=== PATIENT | female | born 1955 | race Caucasian/White ===

== ENCOUNTER → 2018-03-15 | Outpatient (CLI) | payer OTHER ==
--- NOTE | 2018-03-15 09:51 | PCVCIMAG ---
EXAM: BILATERAL RENAL ULTRASOUND AND BILATERAL RENAL DUPLEX INDICATION: Hypertension FINDINGS: Right kidney: Length measures 9.0 cm. No hydronephrosis or extensive renal scarring. Right renal duplex: Adequate technical quality. 50-60% proximal renal artery stenosis. The aortic to renal artery ratio is 3.5. The renal vein is patent. Left kidney: Length measures 10.3 cm. No hydronephrosis or extensive renal scarring. Left renal duplex: Adequate technical quality. No sonographic evidence of renal artery stenosis. The aortic to renal artery ratio is 2.5. The renal vein is patent. Bladder: No obvious abnormalities. IMPRESSION: 50-60% proximal right renal artery stenosis. No left renal artery stenosis. LOC:[id number]
== END | disposition home or self-care (01) ==
LOC: PCVCIMAG 08:12
PROVIDERS: ATTEND Internal Medicine Cardiovascular Disease
DX: I70.1 Atherosclerosis of renal artery (principal); I10 Essential (primary) hypertension
CPT/HCPCS: 76770; 93975

== ENCOUNTER → 2018-03-19 | Outpatient (CLI) | payer OTHER ==
[~2018-03-19] MED LIST: DIAZEPAM 10 MG TABLET. ONE; HEPARIN for ARTERIAL LINE 1,500 ML ONE; HEPARIN for SUB-Q USE 5,000 UNIT/ML VIAL. ONE; IOHEXOL 300 MG/ML 100ML VIAL. ONE; IOHEXOL 350 MG/ML 100 ML VIAL. ONE; IV NORMAL SALINE 1000ML BAG 1,000 ML ONE; LIDOCAINE 1%/EPI 1:100,000 20 ML VIAL. ONE; MIDAZOLAM HCL/PF 2 MG/2 ML VIAL. ONE; NITROGLYCERIN PREMIX 250 ML IV ONE; WATER FOR INJECTION,STERILE 0 ML IJ ONE; ceFAZolin SODIUM 1 GM VIAL ONE; fentaNYL PF VIAL 100 MCG/2 ML VIAL ONE
--- NOTE | 2018-03-19 19:03 | PCVCINTER ---
EXAM: 1. AORTOGRAM AND BILATERAL ILIOFEMORAL ANGIOGRAPHY 2. BILATERAL RENAL ANGIOGRAPHY INDICATION: Peripheral arterial disease. Leg pain. Hypertension. Renal atherosclerosis. PROCEDURE: Procedure and risks of the procedures listed above were discussed with the patient and consent obtained. Risks including but not limited to bleeding, infection, stroke, vascular injury, neurologic injury, embolization, allergic reactions, bowel ischemia requiring resection, and contrast-induced nephropathy requiring dialysis were discussed as appropriate and consent obtained. Patient was placed on the angiography table. IV conscious sedation was used throughout procedure with appropriate monitoring from 10:00 AM through 10:30 AM. The right groin was prepped and draped in the normal sterile fashion. Ultrasound was used to interrogate the right groin and demonstrate the right common femoral artery. An ultrasound image was saved. Under ultrasound guidance a 21 gauge needle was used to gain access into the right common femoral artery and a 5F vascular sheath was placed. Catheter was placed into the suprarenal abdominal aorta and abdominal aortic angiogram performed. Catheter was placed into the distal abdominal aorta and bilateral iliofemoral angiography performed. Catheter was placed into the right renal arteries and right renal angiograms performed. Catheter was placed into the left renal arteries and left renal angiograms performed. Dr. Hardy joined the procedure and he performed coronary angiography. Please see his separate dictation for details. Catheters and wires removed. Sheath was removed and hemostasis obtained using the FISH device. No immediate complications. FINDINGS: Aortogram: There is one right and one left renal artery. Minimal plaque infrarenal abdominal aorta without significant stenosis. Bilateral iliofemoral angiography: Mild ectasia throughout the right common iliac artery without significant stenosis. Left common iliac arteries patent. Both internal iliac arteries are patent. The right and left external iliac arteries are patent. The right and left common femoral and profunda femoral arteries are patent. Visualized portions of the upper superficial femoral arteries are patent. Right renal artery: Mild/moderate changes of fibromuscular dysplasia mid main renal artery not felt to be definitely hemoglobin no significant. Left renal artery: Mild changes of fibromuscular dysplasia proximal/mid main renal artery. IMPRESSION: Mild to moderate changes of fibromuscular dysplasia in the right and left main renal arteries as reviewed above are not felt to be of definite hemodynamic significance. LOC:[id number]
--- NOTE | 2018-03-24 18:03 | PCVCINTER ---
APPROVED REPORT Study performed: 03/19/2018 10:36:05 Patient Details Patient Status: Out-Patient Room #: 2 The patient is a 62 year-old Female Event Personnel Antony Perez MD, Kali Silva RT(R), Tata Guerra RN, Sean Botello RT(R)() Risk Factors Arterial HypertensionDysplipidemia (Type: 1), Hypercholesterolemia, Last Creatanine 0.9Tobacco History (Never) Procedure Narrative A 6F sheath was inserted into the right femoral artery. Coronary angiography was performed using coronary diagnostic catheters. The right coronary system was accessed and visualized with a JR4 catheter. The left coronary system was accessed and visualized with a JL4 catheter. The left ventricle was accessed and visualized with a Straight Pigtail catheter. Left ventriculogram was performed in [place] projection. The patient tolerated the procedure well and there were no complications associated with the procedure. Hemodynamics The aortic pressure is 158/77 mmHg with a mean of 112 mmHg. The left ventricular pressure is 141/5 mmHg with a mean of 8 mmHg. Conclusion #1 normal left ventricular size and systolic function EF 60% #2 left main with mild disease giving rise to LAD and circumflex #3 high grade proximal circumflex stenosis 80-90% did not respond IC nitroglycerin. It is a large but nondominant system #4 LAD with mild disease #5 large dominant right coronary artery with minimal distal irregularity Recommendations and plan: Patient will be transferred vascular sheath is secured [facility] for intervention to high-grade ostial circumflex lesion. Hemodynamically stable pain-free
== END | disposition home or self-care (01) ==
LOC: PCVCINTER 11:22
PROVIDERS: ATTEND Internal Medicine Cardiovascular Disease
DX: I70.1 Atherosclerosis of renal artery (principal); I73.9 Peripheral vascular disease, unspecified; Q61.4 Renal dysplasia; I25.10 Atherosclerotic heart disease of native coronary artery without angina pectoris; E78.5 Hyperlipidemia, unspecified; I10 Essential (primary) hypertension; E78.00 Pure hypercholesterolemia, unspecified; I47.1 Supraventricular tachycardia; F41.9 Anxiety disorder, unspecified; I45.10 Unspecified right bundle-branch block; F32.9 Major depressive disorder, single episode, unspecified; Z90.49 Acquired absence of other specified parts of digestive tract; Z90.710 Acquired absence of both cervix and uterus; Z79.899 Other long term (current) drug therapy; Z98.890 Other specified postprocedural states
CPT/HCPCS: 36252; 75630; 76937; 93458; C1751; C1760; C1769; C1894; J1644; J2250; J3010; J3490; J7030; Q9967; 99152; 99153; J0690